=== PATIENT | female | born 1975 | race Two or more races ===

== ENCOUNTER 2023-10-27 10:25 | Emergency (ER) | payer OTHER ==
[~2023-10-27] VITALS: Ht 160 cm; Wt 68.9 kg
[2023-10-27] MEDS ORDERED: TUSNEL LIQUID178 ML PO (11:54)
[2023-10-27] MEDS ORDERED: PEPCID AC20 MG PO (11:54)
[2023-10-27] MEDS ORDERED: ALBUTEROL2.5 MG/3 M IH (11:54)
[2023-10-27] MEDS ORDERED: ZYRTEC10 M3 PO (11:54)
[2023-10-27] MEDS ORDERED: ZITHROMAX500 MG PO (11:54)
== END 2023-10-27 13:02 | disposition home or self-care (01) ==
LOC: ER 10:26
DX: J06.9 Acute upper respiratory infection, unspecified (principal)